=== PATIENT | female | born 1970 | race Caucasian/White ===

== ENCOUNTER 2021-12-26 07:26 | Day surgery (SDC) | payer MEDICAID, SELFPAY ==
[~2021-12-26] VITALS: Ht 157.5 cm; Wt 81.6 kg
[2021-12-26] MEDS ORDERED: MIDAZOLAM HCL 5 MG/5 ML VIAL ONE (07:59)
[2021-12-26] MEDS ORDERED: fentaNYL CITRATE/PF 100 MCG/2 ML AMP ONE (07:59)
[2021-12-26 08:23] LABS: HCG,QUAL RESULT NEGATIVE (NEGATIVE)
[2021-12-26 13:17] VITALS: BP_SYST 119
== END 2021-12-26 10:40 | disposition home or self-care (01) ==
LOC: SDS 07:26 → SMU 07:26 → SDS 10:40
PROVIDERS: ATTEND Internal Medicine
DX: K62.5 Hemorrhage of anus and rectum (principal); K57.30 Diverticulosis of large intestine without perforation or abscess without bleeding; K64.8 Other hemorrhoids; Z20.822 Contact with and (suspected) exposure to COVID-19; Z79.899 Other long term (current) drug therapy
CPT/HCPCS: 36415; 45378; 84703; 87426; 99152; 99153; G0378; J2250; J3010; U0003